=== PATIENT | male | born 1960 | race Asian ===

== ENCOUNTER 2024-12-25 06:21 | Day surgery (SDC) | payer OTHER ==
[2024-12-24 11:03] VITALS: BMI 22.7
[2024-12-25] MEDS ORDERED: LIDOCAINE HCL/PF 1% SDV 5ML VIAL ONE (07:27)
[2024-12-25] MEDS ORDERED: BUPIVACAINE HCL/PF 0.75% 10 ML VIAL ONE (07:27)
[2024-12-25] MEDS ORDERED: DEXAMETHASONE SOD PHOSPHATE 10 MG/1 ML VIAL ONE (07:28)
[2024-12-25 09:42] VITALS: RESP 20
[2024-12-25] MEDS: LIDOCAINE 1% P/F 10 MG/ML VIAL INF ONE (10:02)
[2024-12-25] MEDS: DEXAMETHASONE SOD PHOSPHATE 10 MG/1 ML VIAL IM ONE (10:02)
[2024-12-25] MEDS: IOHEXOL 180 MG/1 ML ML IJ ONE (10:04)
[2024-12-25 10:35] VITALS: BP 124/66; PULSE 76; TEMP 97.5
== END 2024-12-25 10:37 | disposition home or self-care (01) ==
LOC: JASU-SURG 06:21
PROVIDERS: ATTEND Pain Medicine Pain Medicine
PROC: 3E0R3BZ Introduction of Anesthetic Agent into Spinal Canal, Percutaneous Approach (ICD-10-PCS; 2024-12-25)
PROC: 3E0R33Z Introduction of Anti-inflammatory into Spinal Canal, Percutaneous Approach (ICD-10-PCS; principal; 2024-12-25 10:15)
DX: M48.061 Spinal stenosis, lumbar region without neurogenic claudication (principal); M54.16 Radiculopathy, lumbar region
CPT/HCPCS: 76000-TC-FY; J1100